=== PATIENT | female | born 1995 | race Hispanic/Latino ===

== ENCOUNTER 2018-12-15 16:59 | Emergency (ER) | payer BC ==
--- NOTE | 2018-12-15 19:38 | ULT ---
RIGHT LOWER EXTREMITY VENOUS DOPPLER WITH SPECTRAL ANALYSIS AND COLOR FLOW EVALUATION: 12/15/18 HISTORY: Right calf pain for two weeks. Swelling in right calf since yesterday. FINDINGS: Stiles scale, color flow, Doppler evaluation with spectral analysis of the right lower extremity venous structures is performed with 2D imaging. The right lower extremity common femoral, superficial femor al, popliteal, posterior tibial, most proximal greater saphenous and profunda femoral veins are image d. There is normal lumen compressibility, flow, and augmentation of the visualized deep venous structure s of the right lower extremity. IMPRESSION: No evidence of a DVT involving the visualized deep venous structures right lower extremity. POS: NIKA
== END 2018-12-15 19:07 | disposition home or self-care (01) ==
LOC: ERS 16:59
DX: M79.661 Pain in right lower leg (principal); F41.9 Anxiety disorder, unspecified; F17.210 Nicotine dependence, cigarettes, uncomplicated

== ENCOUNTER 2019-08-10 12:02 | Emergency (ER) | payer BC ==
--- NOTE | 2019-08-10 12:29 | RAD ---
EXAM: 3 views of the left foot HISTORY: Foot pain COMPARISON: None FINDINGS: 3 views of the left foot shows no evidence of acute fracture or dislocation. No soft tissue swelling is seen. No degenerative changes are present. IMPRESSION: No evidence of acute osseous abnormality.
[2019-08-10] MEDS ORDERED: HYDROcodone/Acetaminophen 5/325 mg Tablet ONE (12:43)
== END 2019-08-10 13:15 | disposition home or self-care (01) ==
LOC: ERS 12:02
DX: S93.602A Unspecified sprain of left foot, initial encounter (principal); F41.9 Anxiety disorder, unspecified; F17.210 Nicotine dependence, cigarettes, uncomplicated; X50.1XXA Overexertion from prolonged static or awkward postures, initial encounter

== ENCOUNTER 2020-06-21 02:19 | Emergency (ER) | payer BC | END 2020-06-21 05:10 | disposition home or self-care (01) | LOC: ERS 02:19 | DX: L02.415 Cutaneous abscess of right lower limb (principal) | CPT/HCPCS: 99283 ==

== ENCOUNTER 2020-06-25 15:51 | Emergency (ER) | payer BC, SELFPAY ==
[2020-06-25] MEDS ORDERED: Lidocaine 1% w/Epinephrine 1:100K 20 ML VIAL ONE (16:55)
[2020-06-25 17:05] LABS: #Basophils 0.1 thou/uL (0.0-0.2); #Eosinphils 0.2 thou/uL (0.0-0.7); #Lymphocytes 3.2 thou/uL (1.20-3.40); #Monocytes 0.4 thou/uL (0.11-0.59); #Neutrophils 4.3 thou/uL (1.40-6.50); %Basophils 0.9 % (0.0-1.0); %Eosinophils 2.1 % (0.0-10.0); %Lymphocytes 39.7 % (21.0-51.0); %Monocytes 4.3 % (0.0-10.0); Hemoglobin 12.4 g/dL (12.0-16.0); Mean Corpuscular HGB CONC 32.4 g/dL (32.0-36.0); Mean Corpuscular Hemoglobin 27.6 pg (27.0-31.0); Mean Corpuscular Volume 85.2 fL (78.0-98.0); Platelet Count 225 thou/uL (130-400); Red Blood Cell (RBC) Count 4.49 mill/uL (4.20-5.40); White Blood Cell (WBC) Count 8.2 thou/uL (4.8-10.8)
[2020-06-25 17:34] LABS: ALT (SGPT) 21 U/L (8-55); AST (SGOT) 22 U/L (5-34); Albumin 3.3 g/dL (3.5-5.0); Alkaline Phosphatase 84 U/L (40-110); Anion Gap 13 mmol/L (10-20); BUN (Urea Nitrogen) 9 mg/dL (7.0-18.7); Bilirubin, Total 0.4 mg/dL (0.2-1.2); Calc. Creatinine Clearance 0 mL/min (70-130); Calcium 8.7 mg/dL (7.8-10.44); Carbon Dioxide 28 mmol/L (22-29); Chloride 98 mmol/L (98-107); Glucose 435 mg/dL (70-105); Potassium 4.2 mmol/L (3.5-5.1); Protein, Total 7.3 g/dL (6.0-8.3); Sodium 135 mmol/L (136-145)
== END 2020-06-25 17:57 | disposition home or self-care (01) ==
LOC: ERS 15:51
DX: L03.115 Cellulitis of right lower limb (principal); L02.415 Cutaneous abscess of right lower limb; F17.210 Nicotine dependence, cigarettes, uncomplicated
CPT/HCPCS: 10060; 36415; 80053; 85025

== ENCOUNTER 2020-10-25 11:00 | Emergency (ER) | payer SELFPAY ==
[2020-10-25] MEDS ORDERED: Cyclobenzaprine 10 MG TAB ONE (11:59)
[2020-10-25] MEDS ORDERED: Ketorolac Tromethamine 30 MG/ML VIAL ONE (11:59)
== END 2020-10-25 13:26 | disposition home or self-care (01) ==
LOC: ERS 11:00
DX: I82.442 Acute embolism and thrombosis of left tibial vein (principal); F17.210 Nicotine dependence, cigarettes, uncomplicated
CPT/HCPCS: 96372; J1885

== ENCOUNTER 2021-12-20 10:30 | Emergency (ER) | payer SELFPAY ==
[2021-12-20] MEDS ORDERED: Proparacaine 0.5% Opth 15 ML BOT ONE (11:56)
[2021-12-20] MEDS ORDERED: Fluorescein Opthalmic Strip ONE (12:22)
== END 2021-12-20 12:49 | disposition home or self-care (01) ==
LOC: ERS 10:30
DX: S05.01XA Injury of conjunctiva and corneal abrasion without foreign body, right eye, initial encounter (principal); F17.210 Nicotine dependence, cigarettes, uncomplicated; X58.XXXA Exposure to other specified factors, initial encounter; Z85.6 Personal history of leukemia
CPT/HCPCS: 99283

== ENCOUNTER 2022-02-02 19:50 | Emergency (ER) | payer SELFPAY ==
[2022-02-02] MEDS ORDERED: HYDROcodone/Acetaminophen 10/325 mg Tablet ONE (20:32)
[2022-02-02] MEDS ORDERED: Lidocaine 1% PF 5 ML VIAL ONE (20:32)
== END 2022-02-02 21:04 | disposition home or self-care (01) ==
LOC: ERS 19:50
DX: L02.212 Cutaneous abscess of back [any part, except buttock and flank] (principal); F17.210 Nicotine dependence, cigarettes, uncomplicated
CPT/HCPCS: 10060

== ENCOUNTER 2023-04-28 06:42 | Emergency (ER) | payer SELFPAY | END 2023-04-28 07:05 | disposition home or self-care (01) | LOC: ERS 06:42 | DX: H10.9 Unspecified conjunctivitis (principal); E66.9 Obesity, unspecified; F17.210 Nicotine dependence, cigarettes, uncomplicated | CPT/HCPCS: 99282 ==